=== PATIENT | male | born 1980 | race Caucasian/White ===

== ENCOUNTER 2017-06-08 07:01 | Day surgery (SDC) | payer SELFPAY ==
[~2017-06-08] VITALS: Ht 172.7 cm; Wt 88.5 kg
[2017-06-08 11:26] VITALS: BP 109/66
== END 2017-06-08 09:00 | disposition home or self-care (01) | DRG 379 ==
LOC: ENDO 07:01 → ORM 13:30 → ENDO 13:30
PROVIDERS: ATTEND Surgery
PROC: 0DBF8ZX Excision of Right Large Intestine, Via Natural or Artificial Opening Endoscopic, Diagnostic (ICD-10-PCS; principal; 2017-06-08)
PROC: 0DBL8ZX Excision of Transverse Colon, Via Natural or Artificial Opening Endoscopic, Diagnostic (ICD-10-PCS; 2017-06-08)
DX: K62.5 Hemorrhage of anus and rectum (principal); R10.31 Right lower quadrant pain; R19.7 Diarrhea, unspecified